=== PATIENT | female | born 1980 | race Two or more races ===

== ENCOUNTER 2022-10-28 12:53 | Outpatient (OUT) | payer OTHER, SELFPAY ==
--- NOTE | 2022-10-28 12:57 | MM_ITS ---
Patient: VERENA COKER Exam Date: 10/28/2022 : 1980 Gender:F Ordering : DR Bertha Donald Admission #: [id number] Family : Non-Staff Physician Order #: [id number] CLICK HERE TO VIEW EXAM RADIOLOGY REPORT PROCEDURE: MM TOMOSYNTHESIS SCREENING BI COMPARISON: MG MAMM SCREEN 3D ELIESER CAD, 10/08/2020. INDICATIONS: Screening mammogram Z12.31 Calculator Name NCI Breast Cancer Risk Assessment Tool 5 Year Breast Cancer Risk 0.40% Lifetime Breast Cancer Risk 5.50% Personal Breast Cancer No Personal Ovarian Cancer No Treatments None Family Cancers None LOCATION: [facility] [place] BREAST COMPOSITION: Extremely dense, which lowers the sensitivity of mammography. FINDINGS: DIAGNOSTIC CATEGORY 2--BENIGN FINDING: RIGHT BREAST: No significant suspicious finding. Stable lymph node anterior upper-outer quadrant. No significant change has occurred. LEFT BREAST: No significant suspicious finding. No significant change has occurred. RECOMMENDATIONS: ROUTINE MAMMOGRAM AND CLINICAL EVALUATION IN 12 MONTHS. PLEASE NOTE: A NORMAL MAMMOGRAM DOES NOT EXCLUDE THE POSSIBILITY OF BREAST CANCER. A CLINICALLY SUSPICIOUS PALPABLE LUMP SHOULD BE BIOPSIED. Dictated by: Juan oCrtes M.D. on 10/28/2022 at 14:51 Approved by: Juan Cortes M.D. on 10/28/2022 at 15:17
--- NOTE | 2022-10-28 12:58 | US_ITS ---
The [address] [address] Patient Name: VERENA COKER MRN: [id number] date: 1980 Sex: F Assigned Patient Location: US Current Patient Location: Accession/Order Number: [id number] Exam Date: 10/28/2022 13:00 Report Date: 10/28/2022 15:32 At the request of: [place] [employer] Procedure: US pelvis w/ transvaginal EXAMINATION: US pelvis w/ transvaginal HISTORY: Dysmenorrhea N94.6, RLQ pain R10.31 COMPARISON: No relevant comparison available. TECHNIQUE: Transabdominal and/or transvaginal sonographic examination was performed as indicated by examination type. FINDINGS: UTERUS: Normal size and appearance. Thin curvilinear hyperechoic area in superior-lateral margin of the uterine fundus bilaterally, nonspecific but suggestive of fallopian tube occlusive devices. Uterus size: 10.3 x 5.6 x 7.5 cm ENDOMETRIUM: Normal homogeneous appearance. Endometrial thickness: 13 mm RIGHT OVARY: Normal size and appearance. Duplex Doppler demonstrates normal waveform and flow; resistive index 0.6. Ovary size: 3.2 x 1.7 x 2.0 cm LEFT OVARY: Normal size and appearance. Duplex Doppler demonstrates normal waveform and flow; resistive index 0.5. Ovary size: 2.1 x 1.1 x 2.2 cm CUL-DE-SAC: Unremarkable. No significant free fluid. BLADDER: Unremarkable. OTHER: None. US/US pelvis w/ transvaginal IMPRESSION: 1. No abnormal or suspicious findings to account for patient's symptoms. Electronically authenticated by: FLAKITO SIBLEY Date: 10/28/2022 15:32
== END 2022-10-28 12:54 | disposition home or self-care (01) ==
LOC: US 12:54
PROVIDERS: Visit Provider Obstetrics & Gynecology
DX: M25.562 Pain in left knee (principal); G89.29 Other chronic pain; N94.6 Dysmenorrhea, unspecified; R10.31 Right lower quadrant pain; Z12.31 Encounter for screening mammogram for malignant neoplasm of breast
CPT/HCPCS: 73560; 76830; 76856; 77063; 77067

== ENCOUNTER 2022-10-28 13:04 | Outpatient (OUT) | payer OTHER, SELFPAY ==
--- NOTE | 2022-10-28 13:08 | XR_ITS ---
The [address] [address] Patient Name: VERENA COKER MRN: [id number] date: 1980 Sex: F Assigned Patient Location: [facility] Current Patient Location: [facility] Accession/Order Number: [id number] Exam Date: 10/28/2022 13:25 Report Date: 10/28/2022 13:43 At the request of: NON-STAFF PHYSICIAN Procedure: XR knee LT 2V PROCEDURE: XR knee LT 2V HISTORY: Chronic pain G89.29, Left knee pain M25.562 COMPARISON: None. FINDINGS: BONES:No fracture, acute abnormality, or significant arthropathy. SOFT TISSUES:No visible soft tissue swelling. EFFUSION:None visible. OTHER: Negative. XR/XR knee LT 2V IMPRESSION: 1. No acute bone abnormality, lesion, or significant degenerative joint disease. Electronically authenticated by: FLAKITO SIBLEY Date: 10/28/2022 13:43
== END 2022-10-28 13:05 | disposition home or self-care (01) ==
LOC: RAD 13:05
DX: M25.562 Pain in left knee (principal); G89.29 Other chronic pain
CPT/HCPCS: 73560

== ENCOUNTER 2025-02-14 11:23 | Outpatient (OUT) | payer BC, SELFPAY ==
--- OUTSIDE RECORDS SUMMARY | 2025-02-14 11:31 | XMS_ITS | Clinical Summary ---
Author Organization [facility] tem Address [facility] [id number] [address] [place] [address] Care Team Providers Care In Mold Coater Name Role Phone Services, [facility] Primary Care Provider Social History Tobacco UseTypesPacks/DayYears UsedDateSmoking Tobacco: Never AssessedChildcare AnswerDate NbxpyanqQpsomzweuEtcryhr89/10/2019EmploymentAnswerDate Recorded BtzlryylzkDdvlnyy93/10/2019Purpose - LifeAnswerDate RecordedPurpose and direction in zgebLitdrpc84/10/2021CommentsUnknownSex and Gender InformationValueDate RecordedSex Assigned at BirthNot on fileLegal SexFemale 09/23/2014 4:01 PM EDTGender IdentityNot on fileSexual OrientationNot on file Plan of Treatment Health MaintenanceDue DateLast DoneCommentsDepression Qnyjgjghv06/11/1992Tobacco Xbnhvclqx62/11/1992Adult BMI Wqmbvleik97/11/1998DTaP,Tdap and Td Vaccines (1 - Tdap)1998Pap Smear2000Influenza Fnjxoza5910/21/2024 Medical Devices Not on file Insurance * Guarantor: Mara LowryAccount TypeRelation to PatientDate of PhoneBilling AddressPersonal/HrzmxnAwoa30/11/1981 [address] [place] [address] * Guarantor: Mara LowryAccount TypeRelation to PatientDate of PhoneBilling AddressPersonal/YtgysfMbtp82/11[birth year][address] [place] [address] Care Teams Team MemberRelationshipSpecialtyStart DateEnd Date Services, [facility] [address] [place] PCP - GeneralFamily Medicine08/19/19
--- OUTSIDE RECORDS SUMMARY | 2025-02-14 11:31 | XMS_ITS | Clinical Summary ---
Author Organization [facility] Address [address] [place] [address] Care Team Providers Care Supervisor Assembling Name Role Phone Unallocated, [facility] Provider MD Unavailable [phone] Allergies No known active allergies Medications No known medications Active Problems No known active problems Family History RelationNameStatusCommentsFatherAliveMotherAlive Social History Tobacco UseTypesPacks/DayYears UsedDateSmoking Tobacco: NeverSmokeless Tobacco: NeverAlcohol UseStandard Drinks/WeekCommentsNot Currently0 (1 standard drink = 0.6 oz pure alcohol)CommentsUnknownSex and Gender InformationValueDate RecordedSex Assigned at BirthNot on fileLegal PgcCaodit34/04/2024 11:00 AM EST Gender IdentityNot on fileSexual OrientationNot on file Last Filed Vital Signs Vital SignReadingTime TakenCommentsBlood Pressure--Pulse--Temperature-- Respiratory Rate--Oxygen Saturation--Inhaled Oxygen Concentration--Lgcmup09.4 kg (175 lb)05/01/2023 8:20 AM CSOMoqhdo702 cm (5' 3 )05/01/2023 8:20 AM EDTBody Mass Auvsu752905/01/2023 8:20 AM EDT Plan of Treatment Not on file Insurance Care Teams Team MemberRelationshipSpecialtyStart DateEnd Date Unallocated, [facility] Provider, [address] [place], [place] [id number] Family [facility]05/01/23
--- NOTE | 2025-02-14 12:00 | MM_ITS ---
Patient Name: VERENA BUTT MR#: [id number] : 1980 Exam Date: 02/14/2025 Ordering Doctor: LIZANDRO BOO RADIOLOGY REPORT PROCEDURE: MM TOMOSYNTHESIS SCREENING BI COMPARISON: MM TOMOSYNTHESIS SCREENING BI, 10/28/2022. MG MAMM SCREEN 3D ELIESER CAD, 10/08/2020. INDICATIONS: Screening Calculator Name NCI Breast Cancer Risk Assessment Tool 5 Year Breast Cancer Risk 0.50% Lifetime Breast Cancer Risk 5.40% Personal Breast Cancer No Personal Ovarian Cancer No Treatments None Family Cancers None LOCATION: [facility] BREAST COMPOSITION: The breasts are heterogeneously dense, which may obscure small masses. FINDINGS: DIAGNOSTIC CATEGORY 1--NEGATIVE. RIGHT BREAST: No significant suspicious finding. LEFT BREAST: No significant suspicious finding. RECOMMENDATIONS: ROUTINE MAMMOGRAM AND CLINICAL EVALUATION IN 12 MONTHS. Dictated by: Marvin Mclean MD on 02/14/2025 at 12:44 Approved by: Marvin Mclean MD on 02/14/2025 at 12:47
[2025-02-14 14:22] LABS: Alanine Aminotransferase 26 U/L (14-59); Albumin Globulin Ratio 0.9; Albumin Level 3.6 g/dL (3.4-5.0); Alkaline Phosphatase 77 U/L (46-116); Anion Gap 13.4; Aspartate Amino Transferase 14 U/L (15-37); Blood Urea Nitrogen 12.0 mg/dL (7.0-18.0); Calcium 8.8 mg/dL (8.5-10.1); Carbon Dioxide 27.4 mmol/L (21.0-32.0); Chloride 102 mmol/L (98-107); Cholesterol 260 mg/dL (<=200); Estimated GFR (African America >60 (>=60 mL/min/1.73m^2); Estimated GFR (Non-African Ame >60 (>=60 mL/min/1.73m^2); Globulin 4.0 g/dL; Glucose 91 mg/dL (74-106); HDL Cholesterol 47 mg/dL (40-60); Potassium 3.8 mmol/L (3.5-5.1); Sodium 139 mmol/L (136-145); Thyroid Stimulating Hormone 1.887 uIU/mL (0.358-3.740); Total Protein 7.6 g/dL (6.4-8.2); Triglycerides 305 mg/dL (<=150); VLDL CHOLESTEROL 61.0 mg/dL
== END 2025-02-14 11:24 | disposition home or self-care (01) ==
DX: Z12.31 Encounter for screening mammogram for malignant neoplasm of breast (principal); Z13.1 Encounter for screening for diabetes mellitus; Z13.220 Encounter for screening for lipoid disorders; Z13.29 Encounter for screening for other suspected endocrine disorder; Z11.4 Encounter for screening for human immunodeficiency virus [HIV]
CPT/HCPCS: 36415; 77063; 77067; 80053; 80061; 84439; 84443; 87389